=== PATIENT | male | born 1970 | race Hispanic/Latino ===

== ENCOUNTER 2020-04-01 13:12 | Emergency (ER) | payer SELFPAY ==
[2020-04-01] MEDS ORDERED: Tetracaine 0.5% PF 4 ML BOT ONE (13:24)
[2020-04-01] MEDS ORDERED: Fluorescein Opthalmic Strip ONE (13:24)
== END 2020-04-01 14:30 | disposition home or self-care (01) ==
LOC: MADERS 13:12
DX: T15.92XA Foreign body on external eye, part unspecified, left eye, initial encounter (principal); Z87.891 Personal history of nicotine dependence
CPT/HCPCS: 99283